=== PATIENT | male | born 1960 | race Caucasian/White ===

== ENCOUNTER 2019-08-27 11:59 | Emergency (ER) | payer BC, OTHER ==
[2019-08-27 12:26] VITALS: BP 118/76
[2019-08-27] MEDS ORDERED: Meclizine TAB* 12.5 MG PO ONE (13:03)
--- NOTE | 2019-08-27 13:10 | UC ---
Dizzy HPI HPI Summary: 58-year-old male comes in with a chief complaint of dizziness. It has been going on the Last couple days. There is a spinning component to it. It's worse when he moves his head and sits up and sits down. Patient reports it's like when you been on a boat for a long time he first step back on land. No ear pain no runny nose no fevers no chills no headache. No weakness or numbness no change in vision or speech. No chest pain no palpitations. Does not feel like his pass out. - History Of Current Complaint Chief Complaint: UCDizziness Stated Complaint: LIGHTHEADED, DIZZY Time Seen by Provider: 08/27/19 12:24 Pain Intensity: 1 - Allergies/Home Medications Allergies/Adverse Reactions: Allergies Allergy/AdvReac Type Severity Reaction Status Date / Time No Known Allergies Allergy Verified 08/27/19 12:14 Home Medications: Home Medications Aspirin 81 mg CHEW TAB* [Aspirin Low Dose TAB*] 324 mg PO PRN 08/27/19 [History] Testosterone Micronized [Testosterone] 0.5 ml WEEKLY 08/27/19 [History Confirmed 08/27/19] PMH/Surg Hx/FS Hx/Imm Hx Previously Healthy: Yes - Surgical History Surgical History: Yes Surgery Procedure, Year, and Place: BACK SURGERY - Family History Known Family History: Positive: Non-Contributory - Social History Alcohol Use: Occasionally Alcohol Amount: ONE BEER EVERY TWO WEEKS Substance Use Type: None Smoking Status (MU): Never Smoked Tobacco Review of Systems All Other Systems Reviewed And Are Negative: Yes Constitutional: Positive: Other - SEE HPI Skin: Positive: Negative Eyes: Positive: Negative ENT: Positive: Negative Respiratory: Positive: Negative Cardiovascular: Positive: Negative Gastrointestinal: Positive: Negative Motor: Positive: Negative Neurovascular: Positive: Negative Musculoskeletal: Positive: Negative Neurological: Positive: Negative Psychological: Positive: Negative Is Patient Immunocompromised?: No Physical Exam Triage Information Reviewed: Yes Appearance: Well-Appearing, No Pain Distress, Well-Nourished Vital Signs: Initial Vital Signs Temp 97.8 F 08/27/19 12:17 Pulse 61 08/27/19 12:17 Resp 18 08/27/19 12:17 BP 118/76 08/27/19 12:17 Pulse Ox 100 08/27/19 12:17 Vital Signs Reviewed: Yes Eye Exam: Normal Eyes: Positive: Conjunctiva Clear, Other: - PERRLA EOMI. No photophobia. No nystagmus. ENT: Positive: Pharynx normal, Other - Right TM has bubbles behind it with clear fluid. No erythema no apparent pus. Neck: Positive: Supple Respiratory: Positive: Lungs clear, Normal breath sounds, No respiratory distress Cardiovascular: Positive: RRR Musculoskeletal: Positive: Strength Intact, ROM Intact Neurological: Positive: Alert, Muscle Tone Normal, Other: - No nystagmus on exam. No facial droop. Normal sensation on face and arms and legs. No drift with the hands. Legs and arms have full strength and full range of motion. Normal finger to nose normal heel to allison. No visual field deficit found. Psychological: Positive: Normal Response To Family, Age Appropriate Behavior Skin Exam: Normal Dizzy Course/Dx - Course Course Of Treatment: Patient describes a spinning dizziness with movement of his head. There is fluid behind the right TM. All of these factors point towards peripheral vertigo. We'll treat with meclizine and patient's follow-up his primary care doctor. We discussed the signs and symptoms of stroke. Here his finger-nose and heel-to -allison were normal. Discussed with the patient if he has any signs or symptoms of stroke is to go directly to the emergency room. - Differential Dx/Diagnosis Provider Diagnosis: Acute serous otitis media of right ear, Vertigo, Dizziness Discharge ED - Sign-Out/Discharge Documenting (check all that apply): Patient Departure All imaging exams completed and their final reports reviewed: No Studies - Discharge Plan Condition: Stable Disposition: HOME Prescriptions: Meclizine HCl [Motion Sickness Relief] 25 mg PO Q6HR PRN #20 tablet PRN Reason: Vertigo Patient Education Materials: Vertigo (ED), Dizziness (ED), Serous Otitis Media (ED) Referrals: [facility] – [place] PHYSICIAN REFERRAL [Outside] Chas MARTINEZ MD,Phil Mcmahon [Medical Doctor] - Additional Instructions: FOLLOW UP WITH YOUR DOCTOR SCHEDULED 09/07/19. GET REEVALUATED SOONER IF NOT IMPROVING OR GO TO THE EMERGENCY DEPARTMENT IF YOUR CONDITION WORSENS; WEAKNESS, NUMBNESS, DIFFICULTY WITH VISION OR SPEECH, CHEST PAIN, PALPITATIONS OR ANY QUESTIONS OR CONCERNS. - Billing Disposition and Condition Condition: STABLE Disposition: Home
== END 2019-08-27 13:15 | disposition home or self-care (01) ==
LOC: UCCORT 11:59
DX: H65.01 Acute serous otitis media, right ear (principal); R42 Dizziness and giddiness
CPT/HCPCS: 93005; 99202; A9270-GY; G0463